=== PATIENT | male | born 1970 | race African-American/Black ===

== ENCOUNTER 2017-08-24 19:09 | Emergency (ER) | payer OTHER ==
[~2017-08-24] VITALS: Ht 185.4 cm; Wt 118.0 kg
[2017-08-24] MEDS ORDERED: IBUPROFEN 400MG TABLET PO ONE (19:30)
[2017-08-24] MEDS ORDERED: ACETAMINOPHEN 500MG TABLET PO ONE (19:30)
[2017-08-24 21:25] VITALS: BP 140/95
== END 2017-08-24 23:22 | disposition home or self-care (01) ==
LOC: ER 23:21
DX: M54.9 Dorsalgia, unspecified (principal); V49.9XXA Car occupant (driver) (passenger) injured in unspecified traffic accident, initial encounter; Y93.9 Activity, unspecified; Y92.410 Unspecified street and highway as the place of occurrence of the external cause
CPT/HCPCS: 71045; 72131; 72170; 99284

== ENCOUNTER 2020-03-04 19:17 | Emergency (ER) | payer SELFPAY ==
[~2020-03-04] VITALS: Ht 188 cm; Wt 107.0 kg
[2020-03-05 00:37] VITALS: BP 200/117
== END 2020-03-05 00:39 | disposition home or self-care (01) ==
LOC: ER 19:17
DX: I10 Essential (primary) hypertension (principal); F41.9 Anxiety disorder, unspecified; Z98.1 Arthrodesis status
CPT/HCPCS: 99281

== ENCOUNTER 2020-03-21 08:21 | Emergency (ER) | payer OTHER ==
[~2020-03-21] VITALS: Ht 190.5 cm; Wt 105.9 kg
[2020-03-21 08:35] VITALS: BP 158/84
[2020-03-21] MEDS ORDERED: ONDANSETRON HCL 4MG TABLET PO ONE (09:15)
[2020-03-21 09:42] LABS: BASOPHILS % 0.4 % (0.0-2.0); EOSINOPHILS % 0.7 % (0.0-5.0); HEMATOCRIT. 50.8 % (42.0-52.0); HEMOGLOBIN. 16.8 g/dL (14.0-18.0); LYMPHOCYTES % 20.6 % (20.0-50.0); MEAN CORPUSCULAR HEMOGLOBIN 26.7 pg (28.0-32.0); MEAN CORPUSCULAR VOLUME 80.5 fL (80.0-94.0); MEAN PLATELET VOLUME 8.8 fl (7.4-10.4); MONOCYTES % 6.1 % (2.0-8.0); NEUTROPHILS % 72.2 % (40.0-76.0); PLATELET 200 x1000/uL (130-400); RED CELL DISTRIBUTION WIDTH 14.1 % (11.6-14.6)
[2020-03-21 09:45] LABS: CHLORIDE 104 mEq/L (98-107)
== END 2020-03-21 10:15 | disposition home or self-care (01) ==
LOC: ER 08:33
DX: R11.2 Nausea with vomiting, unspecified (principal); R73.03 Prediabetes; Z98.1 Arthrodesis status
CPT/HCPCS: 36415; 80053; 82962; 85025; 93005; 99284; Q0162